=== PATIENT | female | born 1965 | race Caucasian/White ===

== ENCOUNTER → 2017-10-22 | Outpatient (CLI) | payer OTHER ==
--- NOTE | 2017-10-22 12:55 | MAMMOGRAPHY REPORT ---
BILATERAL DIGITAL SCREENING MAMMOGRAM TOMOSYNTHESIS WITH CAD: 10/22/2017 CLINICAL HISTORY: Routine screening. Patient has no complaints. TECHNIQUE: Breast tomosynthesis in addition to standard 2D mammography was performed. Current study was also evaluated with a Computer Aided Detection (CAD) system. COMPARISON: Comparison is made to exams dated: 09/14/2014 ultrasound, 09/14/2014 mammogram, 08/31/2014 m ammogram, 08/01/2012 mammogram, 07/17/2011 mammogram, and 11/15/2009 mammogram - [facility] enter. BREAST COMPOSITION: There are scattered areas of fibroglandular density in both breasts. FINDINGS: There is fluctuating nodularity in the breasts as well as involutional changes comparing t o prior mammograms. There is a newly visualized 7 mm partially circumscribed mass in the 12:00 anter ior left breast, that could represent a cyst although definitive characterization with targeted ultra sound and possible additional mammographic views is recommended. A previously observed cyst in the 4:00 left breast has decreased in size comparing to the prior 2013 mammograms and 2014 ultrasound. No other suspicious mass, architectural distortion or cluster of microcalcifications is seen bilatera lly. IMPRESSION: ACR BI-RADS CATEGORY 0: INCOMPLETE EVALUATION: NEED ADDITIONAL IMAGING EVALUATION The newly visualized 7 mm partially circumscribed mass in the 12:00 anterior left breast needs additi onal evaluation. The patient will be called to schedule an appointment. Approximately 10% of breast cancers are not detected with mammography. A negative mammographic report should not delay biopsy if a clinically suggestive mass is present. aTylor Hernandez M.D. ay/:10/22/2017 12:47:32 Ribber: Kristie MATHEWS(Bettina)(Chinedu), [facility] letter sent: Addl Imaging 0 BI-RADS Code: ACR BI-RADS Category 0: Incomplete Evaluation: Need Additional Imaging Evaluation
== END | disposition home or self-care (01) ==
LOC: C.MAMM 09:51
PROVIDERS: ATTEND Family Medicine
DX: Z12.31 Encounter for screening mammogram for malignant neoplasm of breast (principal)

== ENCOUNTER → 2017-11-04 | Outpatient (CLI) | payer OTHER ==
--- NOTE | 2017-11-05 07:58 | MAMMOGRAPHY REPORT ---
UNILATERAL LEFT DIGITAL DIAGNOSTIC MAMMOGRAM TOMOSYNTHESIS AND TARGETED LEFT ULTRASOUND: 11/04/2017 CLINICAL HISTORY: Callback from screening mammography for a partially circumscribed 7 mm mass in the 12:00 left breast. Patient has a history of prior breast cysts. TECHNIQUE: Spot compression left CC and MLO tomosynthesis images were obtained. COMPARISON: Comparison is made to exams dated: 07/17/2011 mammogram, 08/01/2012 mammogram, 08/31/2014 mammogram, 09/14/2014 mammogram, 10/22/2017 mammogram, and 11/04/2017 ultrasound - [facility]. BREAST COMPOSITION: There are scattered areas of fibroglandular density in the left breast. FINDINGS: First targeted ultrasound was performed in the 12:00 left breast and extending throughout t he majority of the superior, retroareolar and 6:00 left breast to assess for the mammographic mass in the 12:00 anterior left breast, measuring approximately 7 mm. On ultrasound, there is a small oval hypoechoic cystic appearing mass, parallel in orientation in the 3:00 periareolar left breast, measur ing 2.8 x 1.5 x 3.3 mm. This probable cyst is smaller than the mammographic finding and also does no t correlate in expected location, likely incidentally identified. No other discrete solid or cystic mass identified, with particular attention to the 12:00 axis. Therefore additional spot compression tomosynthesis views of the left breast were obtained to assess if the mass persists today. These additional spot compression tomosynthesis views demonstrate the ma ss does persist. It is low in density, oval to reniform in shape with circumscribed borders, measuri ng 7.8 x 4.5 x 5.3 mm. No associated architectural distortion or calcification. Targeted ultrasound was again performed. A previously observed cyst in the 4:00 left breast has decreased in size oksana ring to prior mammograms. Additional targeted ultrasound performed in the 12:00 and retroareolar breast demonstrate a circumscr ibed oval isoechoic mass versus normal fat lobule in the 12:00 axis, 3 cm from the nipple, measuring 7.8 x 2.4 x 5.3 mm. This could represent an isoechoic fibroadenoma or normal fat lobule. The locati on does seem to correlate with the mammographic finding. Given the benign mammographic and sonograph ic features, a short interval follow-up left diagnostic mammogram and repeat targeted ultrasound is r ecommended to ensure stability in 6 months. IMPRESSION: ACR-BI-RADS CATEGORY 3: PROBABLY BENIGN, TARGETED ULTRASOUND ACR-BI-RADS CATEGORY 3: PRO BABLY BENIGN 1. There is a persistent oval to reniform circumscribed 7.8 mm mass in the 12:00 left anterior breas t mammographically, with possible sonographic correlate in the 12:00 left breast, 3 cm from the nippl e, which could represent an isoechoic fibroadenoma or normal fat lobule. Given the benign imaging fe atures both mammographically and sonographically, but conspicuous nature of this finding comparing to more remote mammograms, a short interval follow-up left diagnostic tomosynthesis mammogram and repea t targeted ultrasound is recommended to ensure stability in 6 months. These results and recommended as were discussed with the patient at the time of the exam. Approximately 10% of breast cancers are not detected with mammography. A negative mammographic report should not delay biopsy if a clinically suggestive mass is present. Taylor Hernandez M.D. ay/:11/04/2017 12:19:36 Outreach Team Member: Shonda MATHEWS(Bettina)(Chinedu), [facility] letter sent: Follow Up Recommended 3 BI-RADS Code: ACR-BI-RADS Category 3: Probably Benign Ultrasound BI-RADS: ACR-BI-RADS Category 3: Pr obably Benign
--- NOTE | 2017-11-09 07:46 | CODING QUERY NO DIAGNOSIS ---
TREATMENT RENDERED WITHOUT A DIAGNOSIS To promote full compliance with coding requirements relating to patient care, physician participation is requested in all cases of billiard player uncertainty. Please assist us with providing a diagnosis/symptom for the test(s) below: A diagnosis/symptom was not documented on your Order. A valid diagnosis/symptom is required to bill all insurances. Please remember that we are unable to code a diagnosis of rule out, probable, possible, questionable, or suspected. Tests that require a diagnosis: DOS: 11/04/17 * UNILATERAL LEFT DIGITAL DIAGNOSTIC MAMMOGRAM TOMOSYNTHESIS AND TARGETED LEFT ULTRASOUND DIAGNOSIS: Provider Signature: Date: Thank you Bianca Brewer [facility] Information Management Once completed, please kindly fax back to [phone] For questions please call [phone]
== END | disposition home or self-care (01) ==
LOC: C.MAMM 11:19
PROVIDERS: ATTEND Family Medicine
DX: N60.02 Solitary cyst of left breast (principal)